=== PATIENT | female | born 1975 | race Caucasian/White ===

== ENCOUNTER 2025-04-12 23:06 | Emergency (ER) | payer BC, SELFPAY ==
--- OUTSIDE RECORDS SUMMARY | 2025-03-31 13:00 | XMS_ITS | Encounter Summary ---
Author Organization [facility] Healthcare Address [address] [facility] [place] [address] Care Team Providers Care Medical Clerk Name Role Phone Tess Aguila MD Primary Care Provider Encounter Details DateTypeDepartmentCare Team (Latest Contact Info)Psklegxkivm75/14/2025 1:00 PM ESTProcedure Visit [facility] [address] [place] [address] Tess Aguila MD [address] [place], [place] [phone] Facial rhytids (Primary Dx) Social History Tobacco UseTypesPacks/DayYears UsedDateSmoking Tobacco: NeverSmokeless Tobacco: NeverAlcohol UseStandard Drinks/WeekCommentsNot Currently0 (1 standard drink = 0.6 oz pure alcohol)caffeine 1-2 cups/[id number] Health LiteracyAnswerDate RecordedHow often do you need to have someone help you when you read instructions, pamphlets, or other written material from your doctor or pharmacy? Never09/20/2024Humiliation, Afraid, Rape, and Kick questionnaireAnswerDate RecordedWithin the last year, have you been afraid of your partner or ex-partner?No09/20/2024Within the last year, have you been humiliated or emotionally abused in other ways by your partner or ex-partner?No09/20/2024 Within the last year, have you been kicked, hit, slapped, or otherwise physically hurt by your partner or ex-partner?No09/20/2024Within the last year, have you been raped or forced to have any kind of sexual activity by your part ner or ex-partner?No09/20/2024Social Connection and Isolation PanelAnswerDate RecordedIn a typical week, how many times do you talk on the phone with family, friends, or neighbors?More than three times a week09/20/2024How often do you get together with friends or relatives?Twice a week09/20/2024How often do you attend spiritism or holiness services?1 to 4 times per year09/20/2024Do you belong to any clubs or organizations such as spiritism groups, unions, fraternal or athletic ramirez ups, or school groups?No09/20/2024How often do you attend meetings of the clubs or organizations you belong to?Never09/20/2024re you , , , , never , or living with a partner?Keaijzj0809/20/2024 AUDIT-CAnswerDate RecordedQ1: How often do you have a drink containing alcohol? 2-4 times a month09/20/2024Q2: How many drinks containing alcohol do you have on a typical day when you are drinking?1 or Q3: How often do you have six or more drinks on one occasion?Never09/20/2024Overall Financial Resource Strain (CARDIA)AnswerDate RecordedHow hard is it for you to pay for the very basics like food, housing, medical care, and heating?Not hard at all09/20/2024 PHQ-2AnswerDate RecordedPatient Health Questionnaire-2 Yrqli382[facility] [place] of Occupational Health - Occupational Stress QuestionnaireAnswerDate RecordedDo you feel stress - tense, restless, nervous, or anxious, or unable to sleep at night because yourmind is troubled all the time - these days?To some wodpgu1307/14/2023Exercise Vital SignAnswerDate RecordedOn average, how many days per week do you engage in moderate to strenuous exercise (like a brisk walk)?7 days09/20/2024On average, how many minutes do you engage in exercise at this level?60 min09/20/2024Hunger Vital SignAnswerDate RecordedWithin the past 12 months, you worried that your food would run out before you got the money to buy more.Never true09/20/2024Within the past 12 months, the food you bought just didn't last and you didn't have money to get more.Never true09/20/2024PRAPARE - TransportationAnswerDate RecordedIn the past 12 months, has lack of transportation kept you from medical appointments or from getting medications?No 09/20/2024In the past 12 months, has lack of transportation kept you from meetings, work, or from getting things needed for daily living?No09/20/2024 Housing Stability Vital SignAnswerDate RecordedIn the last 12 months, was there a time when you were not able to pay the mortgage or rent on time?No07/14/2023In the last 12 months, how many places have you lived?In the last 12 months, was there a time when you did not have a steady place to sleep or slept in [facility] (including now)?No07/14/2023Housing Stability Vital SignAnswerDate RecordedIn the last 12 months, was there a time when you were not able to pay the mortgage or rent on time?No09/20/2024Number of Times Moved in the Last Year Not on file09/20/2024t any time in the past 12 months, were you homeless or living in a detention (including now)?No09/20/2024CommentsUnknownSex and Gender InformationValueDate RecordedSex Assigned at BirthNot on fileLegal Sex Wdyowo9907/30/2022 7:03 PM EDTGender IdentityNot on fileSexual OrientationNot on filedocumented as of this encounter Progress Notes * Tess Aguila MD - 03/31/2025 1:00 PM EST Botox Procedure Note Diagnosis: rhytides Location: glabella and forehead Informed consent: Discussed risks (infection, pain, bleeding, bruising, swelling, allergic reaction, paralysis of nearby muscles, eyelid droop, double vision, neck weakness, difficulty breathing, headache, undesirable cosmetic result, need for additional treatment, and ) and benefits of the procedure, as well as the alternatives. Informed consent was obtained. Preparation: The area was cleansed with alcohol. Procedure Details: Botox was injected into the dermis with a 30-gauge needle. Pressure applied to any bleeding. Ice packs offered for swelling. Lot Number: [id number] Expiration: 03/13 Total Units Injected: 30 4 units in each of 5 spots in glabella. 2 units in 5 spots across forehead. Plan: She was instructed to remain upright for 6 hours. Tylenol may be used for headache. Allow 2 weeks before returning to clinic for additional dosing as needed. She will call for any problems. documented in this encounter Plan of Treatment Not on file documented as of this encounter Visit Diagnoses Diagnosis Facial rhytids- Primary documented in this encounter Administered Medications Medication OrderMAR ActionAction DateDoseRateSite onabotulinumtoxinA (Botox) injection 30 Units 30 Units, Injection, Once, On Thu03/31/25 at 1330, For 1 dose, Charging context for this clinic-administered medication: Fee-Editable/Self Pay Indications:Facial tfzwopxVzvrp40/14/2025 1:23 PM EST30 Unitsdocumented in this encounter Care Teams Team MemberRelationshipSpecialtyStart DateEnd Tess Aguila MD [address] [place] [address] PCP - GeneralFamily Medicine11/27/22documented as of this encounter
[2025-04-12 23:15] VITALS: BP 116/85; PULSE 86; TEMP 36.7; O2SAT 99; BMI 21.6
[2025-04-12 23:19] LABS: Glucose Urine UA NEGATIVE (NEGATIVE)
[2025-04-12 23:20] LABS: HCG Qualitative Urine* NEGATIVE (NEGATIVE)
[2025-04-12 23:26] LABS: Cast Seen? NONE SEEN #/LPF (NONE SEEN); Crystals Seen? None Seen #/HPF (None Seen); Urine Culture Indicated YES-FRMC
--- OUTSIDE RECORDS SUMMARY | 2025-04-12 23:34 | XMS_ITS | Clinical Summary ---
Author Organization [facility] Address [address] [facility] [place] [address] Care Team Providers Care Kelp Or Seagrass Gatherer Name Role Phone Tess Aguila MD Primary Care Provider [phone] Allergies No known active allergies Medications MedicationSigDispense QuantityRefillsLast FilledStart DateEnd DateStatus tretinoin (Retin-A) 0.05 % cream Indications:Facial rhytidsApply topically at bedtime 45 g 505//[id number]/6ActiveHospital, Clinic, or Other Facility Administered MedicationOrdered DoseRouteFrequencyStart DateEnd DateStatus onabotulinumtoxinA (Botox) injection 30 Units Indications:Facial xeeqvud73 YzmwuURYmta28/14/47118105/31/2024Ended Active Problems ProblemNoted DateDiagnosed DateAbnormal hwxpdeuzg04/19/2023 Encounters DateTypeDepartmentCare DiutNkquvnnklid38/14/2025 1:00 PM ESTProcedure Visit [place] [address] [place] [address] Tess Aguila MD Facial rhytids (Primary Dx)03/31/20255106Cegorf82/25/2025Results Follow-Up [place] [address] [address] Tess Aguila MD Lipid panel, Comprehensive metabolic panel03/07/2025 1:30 PM EDTOffice Visit [place] [address] [address] Tess Aguila MD Encounter for wellness examination (Primary Dx)03/07/2025amboo flowsheet [facility] [address] [place] [phone] Tess Aguila MD 03/07/20250115Ubvzoj13/01/2025Results Follow-Up [facility] [address] [facility] [place] [phone] Tess Aguila MD Bilateral screening mammogram with zjhxgfxjlcwox09/29/2025 8:30 AM EDTAncillary Procedure [facility] [address] [facility] [address] [facility] [place] [phone] Breast uooxdhlll14/29/2025Travelfrom Last 3 Months Family History Medical HistoryRelationNameCommentsDiabetesFatherLeukemiaMotherCoronary artery diseaseOtherDiabetesOtherHyperlipidemiaOtherHypertensionOtherAlopeciaSonRelation NameStatusCommentsFatherAliveMotherAliveOtherSon Social History Tobacco UseTypesPacks/DayYears UsedDateSmoking Tobacco: NeverSmokeless Tobacco: Never Tobacco Cessation:Counseling Given: Not Answered Alcohol UseStandard Drinks/WeekCommentsNot Currently0 (1 standard drink = 0.6 oz pure alcohol)caffeine 1-2 cups/qpgX1964 Health LiteracyAnswerDate RecordedHow often do you need to have someone help you when you read instructions, pamphlets, or other written material from your doctor or pharmacy?Never 09/20/2024Humiliation, Afraid, Rape, and Kick questionnaireAnswerDate Recorded Within the last year, have you been afraid of your partner or ex-partner?No 09/20/2024Within the last year, have you been humiliated or emotionally abused in other ways by your partner or ex-partner?No09/20/2024Within the last year, have you been kicked, hit, slapped, or otherwise physically hurt by your partner or ex-partner?No09/20/2024Within the last year, have you been raped or forced to have any kind of sexual activity by your partner or ex-partner?No09/20/2024 Social Connection and Isolation PanelAnswerDate RecordedIn a typical week, how many times do you talk on the phone with family, friends, or neighbors?More than three times a week09/20/2024How often do you get together with friends or relatives?Twice a week09/20/2024How often do you attend zoroastrianism or confucianist services?1 to 4 times per year09/20/2024Do you belong to any clubs or organizations such as zoroastrianism groups, unions, fra[employer] or athletic groups, or school groups?No09/20/2024How often do you attend meetings of the clubs or organizations you belong to?Never09/20/2024re you , , , , never , or living with a partner?Zrarusv9009/20/2024UDIT-C AnswerDate RecordedQ1: How often do you have a drink containing alcohol?2-4 times a month09/20/2024Q2: How many drinks containing alcohol do you have on a typical day when you are drinking?1 or Q3: How often do you have six or more drinks on one occasion?Never09/20/2024Overall Financial Resource Strain (CARDIA)AnswerDate RecordedHow hard is it for you to pay for the very basics like food, housing, medical care, and heating?Not hard at all09/20/2024PHQ-2 AnswerDate RecordedPatient Health Questionnaire-2 Olltb653[facility] [place] of Occupational Health - Occupational Stress QuestionnaireAnswerDate RecordedDo you feel stress - tense, restless, nervous, or anxious, or unable to sleep at night because yourmind is troubled all the time - these days?To some nseljn1207/14/2023Exercise Vital SignAnswerDate RecordedOn average, how many days [...] steady place to sleep or slept in [place] (including now)?No07/14/2023Housing Stability Vital SignAnswerDate RecordedIn the last 12 months, was there a time when you were not able to pay the mortgage or rent on time?No09/20/2024Number of Times Moved in the Last Year Not on file09/20/2024t any time in the past 12 months, were you homeless or living in a [place] (including now)?No09/20/2024CommentsUnknownSex and Gender InformationValueDate RecordedSex Assigned at BirthNot on fileLegal Sex Uaqukc7807/30/2022 7:03 PM EDTGender IdentityNot on fileSexual OrientationNot on file Last Filed Vital Signs Vital SignReadingTime TakenCommentsBlood Jqxigget391/7210 1:15 PM EDT Jhqms654703/07/2025 1:15 PM EDTTemperature--Respiratory Rate--Oxygen Kurfpuqzoc78% 03/07/2025 1:15 PM EDTInhaled Oxygen Concentration--[place]64.6 kg (135 lb 12.8 oz)03/07/2025 1:15 PM PEGEaojpz917.1 cm (5' 5 )03/07/2025 1:15 PM EDTBody Mass Index22. 1:15 PM EDT Plan of Treatment Health MaintenanceDue DateLast DoneCommentsCT Cmmlbflmseag1977Colonoscopy 1977FIT1977FOBT1977 9181Epyvulcogjqfn1977Pap Smear1998 Cervical Cancer Ddpnyscey17/29/2024HPV/Mxjrib494006/15/2018COVID-19 Vaccine ( season)5008/10/2020, 07/11/2020Influenza Vaccine (#1)2025Postponed from 01/16/2025 (Patient Refused)Pihdrclak00/29/2026 01/13/2025, 11/05/2023, 11/03/2022, Additional history existsColorectal Cancer Xeasjirun83/16/2027FIT-DNA7001/01/2024neumococcal Vaccine: Pediatrics (0 to 5 Years) and At-Risk Patients (6 to 64 Years)Aged OutNo longer eligible based on patient's age to complete this topic Procedures Procedure NamePriorityDate/TimeAssociated DiagnosisCommentsCOMPREHENSIVE METABOLIC TDXMKEjlrkcc67/24/2025 8:13 AM EDT Encounter for wellness examination LIPID BCLCWTwhpubf08/24/2025 8:13 AM EDT Encounter for wellness examination BI MAMMOGRAM SCREENING TOMOSYNTHESIS GOEDXMJFTYxtwhyu80/29/2025 8:46 AM EDT Breast screening LAB COLOGUARD?? COLON CANCER GRFYHWTrrbgjp35/16/2024 8:40 AM EDT Colon cancer screening THINPREP AND YKUTwaxbxj21/29/2019 12:00 PM EST from Last 3 Months or Most Recently Relevant to Health Maintenance Results * (ABNORMAL) Lipid panel (03/10/2025 8:13 AM EDT)ComponentValueRef RangeTest MethodAnalysis TimePerformed AtPathologist SignatureCHOLESTEROL, XUXIZ756<200 mg/dLQUESTHDL JLTAIEIUMKZ34> OR = 50 mg/uMISZBZGUGYHPLMLOCXI71<150 mg/dLQUEST LDL MGPEBTTWWBL036(H)mg/dL (calc)QUESTComment: Reference range: <100 Desirable range <100 mg/dL for primary prevention; <70 mg/dL for patients with CHD or diabetic patients with > or = 2 CHD risk factors. LDL-C is now calculated using the Ronny-Anibal calculation, which is a validated novel method providing better accuracy than the Friedewald equation in the estimation of LDL-C. Ronny SS et al. STEPHANIE. 2013;310(19): 0942-0194 (http://education.[employer]/faq/CAI461) CHOL/HDLC RATIO2.8<5.0 (calc)QUESTNON HDL NKHIYXFZSXW929<130 mg/dL (calc)QUEST Comment: For patients with diabetes plus 1 major ASCVD risk factor, treating to a non-HDL-C goal of <100 mg/dL (LDL-C of <70 mg/dL) is considered a therapeutic option. Specimen (Source)Anatomical Location / LateralityCollection Method / Volume Collection TimeReceived TimeBloodVenous blood specimen / Nrrtljc1303/10/2025 8:13 AM EDT1 3:27 PM EDT Narrative [facility] - 03/11/2025 12:51 AM EDT FASTING:YES FASTING: YES Resulting Agency Comment Performing Organization Information ?Site ID: QPT ?Name: [facility] ?Address: [address] [place] [address], [address] [place] [phone] ?Director: Darren Turner MD Authorizing ProviderResult TypeResult StatusJeheraclio Aguila MDLAB BLOOD ORDERABLESFinal ResultPerforming OrganizationAddressCity/State/ZIP CodePhone Number [facility] * Comprehensive metabolic panel (03/10/2025 8:13 AM EDT)ComponentValueRef Range Test MethodAnalysis TimePerformed AtPathologist DstvhmwdxJqrnzhx9933 - 99 mg/dLQUESTComment: ? Fasting reference interval OQZ572 - 25 mg/dLQUESTCreatinine0.930.50 - 0.99 mg/mYNOEBBIUKH11> OR = 60 mL/min/1.99s9CUHCCIXM/CREATININE RATIOSEE NOTE:6 - 22 (calc)QUESTComment: ?? Not Reported: BUN and Creatinine are within ?? reference range. ? Qpcykw724231 - 146 mmol/LQUESTPotassium, Bld4.23.5 - 5.3 mmol/VWBWYKBpftywfo088 98 - 110 mmol/LQUESTCarbon Ssvysrx5938 - 32 mmol/LQUESTCalcium9.18.6 - 10.2 mg/dLQUESTPROTEIN, TOTAL6.56.1 - 8.1 g/dLQUESTALBUMIN4.43.6 - 5.1 g/dLQUEST GLOBULIN2.11.9 - 3.7 g/dL (calc)QUESTALBUMIN/GLOBULIN RATIO2.11.0 - 2.5 (calc) QUESTBILIRUBIN, TOTAL0.40.2 - 1.2 mg/dLQUESTALKALINE YSCSDOMAISE2571 - 125 U/L SREYCBIK3463 - 35 U/EZPCJXHDR938 - 29 U/LQUESTSpecimen (Source)Anatomical Location / LateralityCollection Method / VolumeCollection TimeReceived TimeBlood Venous blood specimen / Kznoobv6603/10/2025 8:13 AM EDT1 3:27 PM EDT Narrative [facility] - 03/11/2025 12:51 AM EDT FASTING:YES FASTING: YES Resulting Agency Comment Performing Organization Information ?Site ID: QTW ?Name: [facility] ?Address: [address] [place] [phone] ?Director: Paz Kohler Authorizing ProviderResult TypeResult StatusTess Aguila MDLAB BLOOD ORDERABLESFinal ResultPerforming OrganizationAddressCity/State/ZIP CodePhone Number [facility] * Bilateral screening mammogram with tomosynthesis (01/13/2025 8:46 AM EDT) Anatomical RegionLateralityModalityBreastBilateralMammographySpecimen (Source) Anatomical Location / LateralityCollection Method / VolumeCollection Time Received Time01/16/2025 10:34 AM EDT Impressions 01/16/2025 10:42 AM EDT Impression: No specific evidence of malignancy seen in either breast. BIRADS 2 - Benign Findings DENSITY: There are scattered areas of fibroglandular density. FOLLOW-UP: Routine Screening Mammogram ELECTRONICALLY SIGNED BY: Domingo David M.D. Narrative 01/16/2025 10:42 AM EDT Examination: BI MAMMOGRAM SCREENING TOMOSYNTHESIS BILATERAL Clinical History: screening mammogram Technique: Screening digital mammography study of both breasts was performed with 2-D and 3-D tomosynthesis imaging. Study was compared to the prior exam dated 11/05/2023. Findings: There is no evidence of interval dominant spiculated mass, grouped microcalcifications, or skin thickening which would be suggestive of malignancy. ?? A few benign-appearing calcifications are seen bilaterally. A partially visualized axillary lymph node is seen on the right which appears grossly unremarkable. Procedure Note Domingo aDvid MD - 01/16/2025 Examination: BI MAMMOGRAM SCREENING TOMOSYNTHESIS BILATERAL Clinical History: screening mammogram Technique: Screening digital mammography study of both breasts wasperformed with 2-D and 3-D tomosynthesis imaging. Study was compared tothe prior exam dated 11/05/2023. Findings: There is no evidence of interval dominant spiculated mass,grouped microcalcifications, or skin thickening which would be suggestiveof malignancy. A few benign-appearing calcifications are seen bilaterally. A partially visualized axillary lymph node is seen on the right which appears grossly unremarkable. IMPRESSION: Impression: No specific evidence of malignancy seen in either breast. BIRADS 2 - Benign Findings DENSITY: There are scattered areas of fibroglandular density. FOLLOW-UP: Routine Screening Mammogram ELECTRONICALLY SIGNED BY: Domingo David M.D. Authorizing ProviderResult TypeResult StatusJennwilberto Aguila MDG BI PROCEDURES Final Result * Cologuard?? colon cancer screening (01/01/2024 8:40 AM EDT)ComponentValueRef RangeTest MethodAnalysis TimePerformed AtPathologist SignatureNONINV COLON CA DNA+OCC BLD SCRN STL-RZXMcgpbmenQbcvlmia27/21/2024 5:26 PM EDTEXSocial Growth Technologies (CLIA #:[id number])Comment: NEGATIVE TEST RESULT. A negative Cologuard result indicates a low likelihood that a colorectal cancer (CRC) or advanced adenoma (adenomatous polyps with more advanced pre-malignant features) ??is present. The chance that a person with a negative Cologuard test has a colorectal cancer is less than 1in 1500 (negative predictive value >99.9%) or has an advanced adenoma is less than 5.3% (negative predictive value 94.7%). These data are based on a prospective cross-sectional study of 10,000individuals at average risk for colorectal cancer who were screened with both Cologuard and colonoscopy. (Dianne Cota et al, N Engl J Med 2014;370(14):1789-8739) The normal value (reference range) for this assay is negative. COLOGUARD RE-SCREENING RECOMMENDATION: Periodic colorectal cancer screening is an important part ofpreventive healthcare for asymptomatic individuals at average risk for colorectal cancer. ??Following a negative Cologuard result, the [place] [employer] and U.S. Multi-Society Task Force screening guidelines recommend a Cologuard re-screening interval of 3 years. References: [place] [employer] Guideline for Colorectal Cancer Screening: https://www.cancer.or g/cancer/vfbjf-sumgtv-vnydwa/gopwmryla-dgzlfxyao-usdhrsa/acs-recommendations.htm l.; Albert STEWARD, Nicole GAN, Shmuel PichardoK, Colorectal Cancer Screening: Recommendations for Physicians and Patients from the U.S. Multi-Society Task Force on Colorectal Cancer Screening , Am J Gastroenterology 2017; 112:0400-4785. TEST DESCRIPTION: Composite algorithmic analysis of stool DNA-biomarkers with hemoglobin immunoassay. ?? Quantitative values of individual biomarkers are not reportable and are not associated with individual biomarker result reference ranges. Cologuard is intended for colorectal cancer screening ofadults of either sex, 45 years or older, who are at average-risk for colorectal cancer (CRC). Cologuard has been approved for use by the U.S. FDA. The performance of Cologuard was established in a cross sectional study of average-risk adults aged 50-84. Cologuard performance in patients ages 45 to 49 years was estimated by sub-group analysis of near-age groups. Colonoscopies performed for a positive result may find as the most clinically significant lesion: colorectal cancer [4.0%], advanced adenoma (including sessile serrated polyps greater than or equal to 1cm diameter) [20%] or non- advanced adenoma [31%]; or no colorectal neoplasia [45%]. These estimates are derived from a prospective cross-sectional screening study of 10,000 individuals at average risk for colorectal cancer who were screened with both Cologuard and colonoscopy. (Dianne Hartman al, N Engl J Med 2014;370(14):7421-9202.) Cologuard may produce a false negative or false positive result (no colorectal cancer or precancerous polyp present at colonoscopy follow up). A negative Cologuard test result does not guarantee the absence of CRC or advanced adenoma (pre-cancer). The current Cologuard screening interval is every 3 years. ([place] [employer] and U.S. Multi-Society Task Force). Cologuard performance data in a 10,000 patient pivotal study using colonoscopy as the reference method can be accessed at the following location: www.[employer]act[employer]/results. Additional description of the Cologuard test process, warnings and precautions can be found at www.cologuard.com. Specimen (Source)Anatomical Location / LateralityCollection Method / Volume Collection TimeReceived TimeStool specimen (specimen)01/01/2024 8:40 AM EDT 01/02/2024 12:52 PM EDT Narrative Authorizing ProviderResult TypeResult StatusTess ARRIAZA MOLECULAR DIAGNOSTICS ORDERABLESFinal ResultPerforming OrganizationAddressCity/State/ZIP CodePhone Number .XAThe Blaze (CLIA #:[id number]) [address] [place] [address] [phone] [employer] (CLIA #:[id number]) [address] [place] [address] * THINPREP AND HPV (06/15/2018 12:00 PM EST)ComponentValueRef RangeTest Method Analysis TimePerformed AtPathologist SignaturePAP RESULTSnormalECW NONXML LABS Specimen (Source)Anatomical Location / LateralityCollection Method / Volume Collection TimeReceived Time06/15/2018 12:00 PM EST Narrative Authorizing ProviderResult TypeResult StatusTess BLASW LABSFinal ResultPerforming OrganizationAddressty/State/ZIP CodePhone Number [facility] NONXML LABS from Last 3 Months or Most Recently Relevant to Health Maintenance Insurance Care Teams Team MemberRelationshipSpecialtyStart DateEnd Date Tess Aguila MD [address] [place] [address] PCP - GeneralFamily Medicine11/27/22
--- OUTSIDE RECORDS SUMMARY | 2025-04-12 23:34 | XMS_ITS | Encounter Summary ---
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 Name Role Phone Tess Aguila MD Primary Care Provider [phone] Encounter Details DateTypeDepartmentCare Team (Latest Contact Info)Egeasyofppo88/14/2025Travel Social History Tobacco UseTypesPacks/DayYears UsedDateSmoking Tobacco: NeverSmokeless Tobacco: NeverAlcohol UseStandard Drinks/WeekCommentsNot Currently0 (1 standard drink = 0.6 oz pure alcohol)caffeine 1-2 cups/[id number] Health LiteracyAnswerDate RecordedHow often do you need [...] relatives?Twice a week09/20/2024How often do you attend anabaptist or mandaen services?1 to 4 times per year09/20/2024Do you belong to any clubs or organizations such as anabaptist groups, unions, fraternal or athletic ramirez ups, or school groups?No09/20/2024How often do you attend meetings of the clubs or organizations you belong to?Never09/20/2024re you , , , , never , or living with a partner?Xvnxlod5409/20/2024 AUDIT-CAnswerDate RecordedQ1: How often do you have [...] hard at all09/20/2024 PHQ-2AnswerDate RecordedPatient Health Questionnaire-2 [id number] - Occupational Stress QuestionnaireAnswerDate RecordedDo you feel stress - tense, restless, nervous, or anxious, or unable to sleep at night because yourmind is troubled all the time - these days?To some [id number]/14/2023Exercise Vital SignAnswerDate RecordedOn average, how many days [...] steady place to sleep [facility] ([facility] now)?No07/14/2023Housing Stability Vital SignAnswerDate RecordedIn the last 12 months, was there a time when you were not able to pay the mortgage or rent on time?No09/20/2024Number of Times Moved in the Last Year Not on file09/20/2024t any time in the past 12 months, were you homeless or living in a alf (including now)?No09/20/2024CommentsUnknownSex and Gender InformationValueDate RecordedSex Assigned at BirthNot on fileLegal Sex Empdps5007/30/2022 7:03 PM EDTGender IdentityNot on fileSexual OrientationNot on filedocumented as of this encounter Plan of Treatment Not on file documented as of this encounter Visit Diagnoses Not on filedocumented in this encounter Care Teams Team MemberRelationshipSpecialtyStart DateEnd Date Tess Aguila MD [address] [place] [address] PCP - GeneralFamily Medicine11/27/22documented as of this encounter
[2025-04-12] MEDS: NITROFURANTOIN MONOHYD/MAC-CRST 100 MG CAPSULE PO (23:37)
--- NOTE | 2025-04-12 23:43 | PC.NURSE ---
i gave this patient verbal and written discharge orders along with 1 e-scripts and this patient voices yes to understanding these. at time of discharge this patient voices no concerns, needs and shows no signs of distress
--- NOTE | 2025-04-13 00:38 | ED_ITS ---
HPI HPI - General Adult General Chief complaint: Urogenital-Female Stated complaint: UTI Time Seen by Provider: 04/12/25 23:10 Source: patient Mode of arrival: walk-in Limitations: no limitations History of Present Illness HPI narrative: Patient is a 42-year-old female presenting to the emergency department for concerns of UTI. Patient states that over the last 3 hours has been having dy suria and increased urinary frequency. She states the symptoms remind her of the last time she had a UTI. She is otherwise asymptomatic. She denies any fevers, nausea, vomiting, or flank pain. She denies any chest pain or shortness of breath. No history of urologic conditions such as kidney stones were ureteral stents. Related Data Previous Rx's ?Medication ?Instructions ?Recorded nitrofurantoin 100 mg PO BID 5 days #10 cap s 04/12/25 monohydrate/macrocrystals 100 mg capsule Allergies Allergy/AdvReac Type Severity Reaction Status Date / Time No Known Drug Allergies Allergy Verified 04/12/25 23:15 Review of Systems ROS Status of ROS 10 or more systems reviewed and unremark able except as noted in history and below PFSH PFSH Social History Little interest or pleasure in doing things: not at all Feeling down, depressed, or hopeless: not at all Exam Narrative Exam Narrative: CONSTITUTIONAL: Well-appearing, answering questions and following commands appropriately SKIN: Was warm and dry. EYES: Sclerae white. EARS, NOSE, THROAT: Moist oral mucosa. RESPIRATORY: Nonlabored respirations CARDIOVASCULAR: Normal rate and regular rhythm. There is no S3, S4, murmur, rub. GASTROINTESTINAL: Abdomen is nontender and nondistended. MUSCULOSKELETAL: No peripheral edema. NEUROLOGIC: Patient is awake and alert. Facies were symmetrical. Constitutional Vital Signs, click to edit/add: Last Vital Signs Temp 98.1 F 04/12/25 23:15 Pulse 86 04/12/25 23:15 Resp 18 04/12/25 23:15 BP 116/85 04/12/25 23:15 Pulse Ox 99 04/12/25 23:15 O2 Del Method Room Air 04/12/25 23:15 Course Vital Signs Vital signs: Vital Signs Temperature 98.1 F 04/12/25 23:15 Pulse Rate 86 04/12/25 23:15 Respiratory Rate 18 04/12/25 23:15 Blood Pressure 116/85 04/12/25 23:15 Pulse Oximetry 99 04/12/25 23:15 Oxygen Delivery Method Room Air 04/12/25 23:15 Temperature 98.1 F 04/12/25 23:15 Pulse Rate 86 04/12/25 23:15 Respiratory Rate 18 04/12/25 23:15 Blood Pressure 116/85 04/12/25 23:15 Pulse Oximetry 99 04/12/25 23:15 Oxygen Delivery Method Room Air 04/12/25 23:15 Medical Decision Making [facility] Narrative Medical decision making narrative: Patient is a 42-year-old female, no significant medical history, presenting to the emergency department with her history of dysuria and increased urinary frequency. Vital signs are within normal limits. She is afebrile hemodynamically stable. Examination as noted above. Differential diagnosis includes UTI, cystitis. I have low concern for pyelonephritis as she has no flank pain, nausea, vomiting, or fevers. Urinalysis was suggestive of an early, mild UTI. I do believe the patient is stable for discharge. Patient's presentation is most likely consistent with uncomplicated cystitis. They were instructed to follow up with her PCP for further care. Return precautions were given including any new or worsening symptoms. They were given a prescription for Macrobid 100 mg twice daily x 5 days. Patient understands and agrees to the plan. FINAL IMPRESSION: #Acute uncomplicated cystitis DISPOSITION: Discharged home CONDITION: Good Lab Data Lab results reviewed: Yes I reviewed the patient's lab results Labs: Lab Results 04/12/25 Range/Units 23:10 Urine Color Lt. yellow (YELLOW) Urine Clarity Clear (CLEAR) Urine pH 7.0 (5.0-9.0) Ur Specific Casey 1.010 (1.005-1.025) Urine Protein Negative (NEG/TRACE) mg/dL Urine Glucose (UA) Negative (NEGATIVE) mg/dL Urine Ketones Negative (NEGATIVE) mg/dL Urine Occult Blood Small A (NEGATIVE) Urine Nitrite Negative (NEGATIVE) Urine Bilirubin Negative (NEGATIVE) Urine Urobilinogen 0.2 (0.2-1.0) EU/dL Ur Leukocyte Esterase Small A (NEGATIVE) Urine RBC None seen (0-2) #/HPF Urine WBC 5-10 A (NONE SEEN) #/HPF Ur Squamous Epith Cells Rare (NONE/RARE) #/LPF Urine Crystals None seen (None Seen) #/HPF Urine Bacteria Trace A (NONE SEEN) #/HPF Urine Casts None seen (NONE SEEN) #/LPF Urine Mucus None seen (NONE SEEN) Urine Yeast Seen A (NONE SEEN) [place] [place]CG, Qual Negative (NEGATIVE) Discharge Plan Discharge Chief Complaint: Urogenital-Female Clinical Impression: Urinary tract infection Patient Disposition: Home, Self-Care Time of Disposition Decision: 23:28 Condition: Good Mode of Transportation: Private Vehicle Prescriptions / Home Meds: New nitrofurantoin monohyd/m-cryst 100 mg capsule 100 mg PO BID 5 Days Qty: 10 0RF Rx Instructions: must administer with a meal/food Print Language: Urugu[place] Instructions: Urinary Tract Infection in Women (DC) Discharge Date/Time: 04/12/25 23:42
== END 2025-04-12 23:42 | disposition home or self-care (01) ==
PROVIDERS: Emergency Provider Student in an Organized Health Care Education/Training Program; PCP Family Medicine
DX: N39.0 Urinary tract infection, site not specified (principal); Z87.440 Personal history of urinary (tract) infections
CPT/HCPCS: 81001; 84703; 87086; 99283